=== PATIENT | female | born 1990 | race Caucasian/White ===

== ENCOUNTER 2021-02-11 12:08 | Emergency (ER) | payer OTHER ==
[~2021-02-11] VITALS: Ht 180.3 cm; Wt 83.1 kg
--- NOTE | 2021-02-11 12:42 | NUR ---
PT AMBULATED TO ROOM FROM [facility]. PT STATED THAT SHE IS ABOUT 5 WEEKS AND THIS MORNING, STARTED EXPERIENCING VAGINAL BLEEDING WITH 1 LARGE CLOT. PT STATED SHE HAS MILD CRAMPS. PT DENIES ANY FEVER, N/V/D, OR PAINFUL URINATION.
[2021-02-11 12:55] LABS: BASOPHILS % (AUTO) 1 % (0-1); EOSINOPHILS % (AUTO) 0 % (1-7); LYMPHOCYTES % (AUTO) 15 % (22-44); MEAN CORPUSCULAR HEMOGLOBIN 34.9 pg (27.0-34.8); MEAN CORPUSCULAR HGB CONC 35.5 g/dL (32.4-35.8); MEAN PLATELET VOLUME 9.3 fL (7.4-10.4); MONOCYTES % (AUTO) 6 % (2-9); NEUTROPHILS % (AUTO) 78 % (42-75); PLATELET COUNT 207 x10^3/uL (130-400); RED BLOOD COUNT 4.21 x10^6/uL (3.82-5.3); RED CELL DISTRIBUTION WIDTH 12.2 % (9.6-15.2)
[2021-02-11 12:57] LABS: MD NO
[2021-02-11 13:00] LABS: MICROSCOPIC INDICATED
[2021-02-11 13:07] LABS: ANION GAP 7 mmol/L (5-15); CALCIUM 8.7 mg/dL (8.5-10.1); CHLORIDE 106 mmol/L (98-107)
--- NOTE | 2021-02-11 13:15 | NUR ---
US AT BEDSIDE
[2021-02-11 13:26] LABS: CREATININE 0.67 mg/dL (0.55-1.02)
[2021-02-11] MEDS ORDERED: RHOGAM FROM BLOOD BANK 1 NOTE EA IM/IV ONE (13:30)
--- NOTE | 2021-02-11 13:45 | NUR ---
PT RESTING COMFORTABLY IN [facility]. CALL LIGHT WITHIN REACH.
--- NOTE | 2021-02-11 14:17 | NUR ---
REQUEST FOR RHOGAM SENT TO BLOOD BANK
[2021-02-11 14:28] VITALS: BP 133/63
[2021-02-11 14:47] VITALS: BP 128/62
[2021-02-11 14:59] VITALS: BP 125/65
--- NOTE | 2021-02-11 15:11 | NUR ---
DISCHARGE INSTRUCTIONS REVIEWED WITH PT. ALL QUESTIONS ANSWERED AT THIS TIME.
== END 2021-02-11 15:13 | disposition home or self-care (01) ==
LOC: ED 14:22
DX: O20.0 Threatened abortion (principal); Z3A.01 Less than 8 weeks gestation of pregnancy; Z91.048 Other nonmedicinal substance allergy status; Z91.018 Allergy to other foods
CPT/HCPCS: 36415; 36430; 76801; 80048; 81001; 82040; 84702; 85025; 86850; 86900; 87086; 99285; J2790